=== PATIENT | male | born 1930 | race Caucasian/White ===

== ENCOUNTER 2016-09-26 04:12 | Emergency (ER) | payer MEDICARE, BC ==
--- NOTE | 2016-09-26 05:19 | EDM.PDOC ---
ED HPI GENERAL MEDICAL PROBLEM - General Chief Complaint: Lower Extremity Injury/Pain Stated Complaint: left knee pain Time Seen by Provider: 09/26/16 04:54 Source of Information: Reports: Patient History Limitations: Reports: No Limitations - History of Present Illness INITIAL COMMENTS - FREE TEXT/NARRATIVE: Patient presents via ambulance, with left knee pain. He tells me that he gets very sharp episodes of pain in the medial left knee that last 1-2 seconds. This is unrelated to activity or WTB. He thinks it is his neuropathy. The sharp episodes were coming every 15 seconds when it started 12 hours ago and now every few minutes. He has not had a flare like this since he can remember; he takes Gabapentin 2400 mg/day for this and has been taking it as directed. 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 When asked about his blood pressure he says he usually is 120 's over 70 and doesn't take any BP meds. He had been on one in the past but it was discontinued when he started having low pressure episodes. He denies any weakness or headache. No history of stroke but his eye doctor says he may have had a TIA in the past sometime, in regard to some blurry vision he has occasionally. Left Knee Pain Score (Numeric/FACES): 10 - Related Data Allergies Allergy/AdvReac Type Severity Reaction Status Date / Time Penicillins Allergy Unknown Other Verified 09/26/16 04:37 amitriptyline Allergy Drowsiness Verified 09/26/16 04:37 lisinopril Allergy Cough Verified 09/26/16 04:37 Home Meds: Home Meds Aspirin [Ecotrin] 325 mg PO DAILY 11/17/15 [History] Gabapentin [Gabapentin] 600 mg PO 1600 11/17/15 [History] Gabapentin [Neurontin] 300 mg PO 5XDAY 11/17/15 [History] Levothyroxine Sodium [Levothyroxine Sodium] 50 mcg PO ACBREAKFAST 11/17/15 [ History] Simvastatin [Simvastatin] 20 mg PO DAILY 11/17/15 [History] Sulfamethoxazole/Trimethoprim [Sulfamethoxazole-Tmp Ss Tablet] 1 tab PO DAILY [History] Acetaminophen 1 - 2 tab PO Q6H PRN 09/26/16 [History] Docusate Sodium [Colace] 1 cap PO BID PRN 09/26/16 [History] Lutein/Minerals/Vit A,C & E [Ocuvite] 1 tab PO DAILY 09/26/16 [History] Terazosin HCl [Terazosin] 4 mg PO BEDTIME 09/26/16 [History] Vitamin B Complex 1 cap PO DAILY 09/26/16 [History] Past Medical History HEENT History: Reports: Impaired Vision, Other (See Below) Other HEENT History: partial lower denture Cardiovascular History: Reports: Bypass, High Cholesterol, Hypertension Gastrointestinal History: Reports: Chronic Constipation Genitourinary History: Reports: BPH, Prostate Disorder, UTI, Recurrent Musculoskeletal History: Reports: Arthritis Neurological History: Reports: Neuropathy, Peripheral - Past Surgical History HEENT Surgical History: Reports: Cataract Surgery Cardiovascular Surgical History: Reports: Coronary Artery Bypass GI Surgical History: Reports: Colonoscopy, Other (See Below) Other GI Surgeries/Procedures: swallow eval done in September 2016 shows aspiration risk; pt is to thicken liquids Male Surgical History: Reports: None Neurological Surgical History: Reports: None Musculoskeletal Surgical History: Reports: None Social & Family History - Tobacco Use Smoking Status *Q: Former Smoker Used Tobacco, but Quit: Yes Month Tobacco Last Used: unknown - Caffeine Use Caffeine Use: Reports: Coffee - Alcohol Use Days Per Week of Alcohol Use: 1 Number of Drinks Per Day: 3 Total Drinks Per Week: 3 - Recreational Drug Use Recreational Drug Use: No Review of Systems - Review of Systems Review Of Systems: See Below Constitutional: Denies: Fever Eyes: Reports: Blurred Vision (when in bright lights). Denies: Tunnel Vision, Vision Change Ears: Denies: Dizziness, Pain Nose: Reports: No Symptoms Mouth/Throat: Reports: No Symptoms Respiratory: Denies: Shortness of Breath, Cough Cardiovascular: Denies: Chest Pain, Syncope GI/Abdominal: Denies: Abdominal Pain, Vomiting Genitourinary: Reports: No Symptoms Musculoskeletal: Reports: Joint Pain (left knee). Denies: Neck Pain, Shoulder Pain, Arm Pain, Leg Pain, Foot Pain, Joint Swelling, Muscle Stiffness Skin: Denies: Cyanosis, Jaundice, Mottled, Pallor, Diaphoresis Neurological: Reports: Difficulty Walking (balance problems, chronic). Denies: Confusion, Dizziness, Headache, Seizure, Syncope, Trouble Speaking Psychiatric: Denies: Confusion ED EXAM, GENERAL - Physical Exam Exam: See Below Exam Limited By: No Limitations General Appearance: Alert, WD/WN, No Apparent Distress Eye Exam: Bilateral Eye: EOMI, Normal Inspection, PERRL Ears: Normal External Exam, Hearing Grossly Normal Nose: Normal Inspection, No Blood Throat/Mouth: Normal Lips, Normal Voice, No Airway Compromise Head: Atraumatic, Normocephalic Respiratory/Chest: No Respiratory Distress, Lungs Clear, Normal Breath Sounds, No Accessory Muscle Use Cardiovascular: Normal Peripheral Pulses, Regular Rate, Rhythm, No Edema, No Murmur GI/Abdominal: Normal Bowel Sounds, Soft, Non-Tender, No Organomegaly, No Distention Back Exam: No: CVA Tenderness (L), CVA Tenderness (R) Extremities: Normal Range of Motion, Non-Tender, No Pedal Edema, Normal Capillary Refill, Other (Exam of left knee reveals no evidence of deformity, effusion or tenderness; twice while I was with patient he wince in pain and indicated left medial knee but this was only a second and then gone. No jointline tenderness. MCL very mildly tender to palpation following the sharp pain. No pain to varus/valgus testing). No: Pedal Edema, Joint Swelling, Adela 's Sign, Increased Warmth, Mottled, Pallor, Redness Neurological: Alert, Oriented, CN II-XII Intact, Normal Cognition, No Motor/ Sensory Deficits Psychiatric: Normal Affect, Normal Mood Skin Exam: Warm, Dry, Intact, Normal Color, No Rash Course - Vital Signs Last Recorded V/S: Last Vital Signs Temp 96.4 F 09/26/16 04:39 Pulse 60 09/26/16 04:39 Resp 16 09/26/16 04:39 BP 195/72 H 09/26/16 04:58 Pulse Ox 95 09/26/16 04:39 - Orders/Labs/Meds Orders: Active Orders 24 hr Category Date Time Status Knee 1V or 2V Lt [CR] Stat Exams 09/26/16 04:47 Ordered Knee Standing AP Bi [CR] Stat Exams 09/26/16 05:07 Ordered - Re-Assessments/Exams Free Text/Narrative Re-Assessment/Exam: 09/26/16 06:18 Xrays show no acute bony pathology or advanced arthritis. Patient's painful episodes are becoming less frequent with measured span of 6 minutes toward end of ER visit. His blood pressure is improving significantly also. Discussed options for these episodes with pharmacist at [facility] and will try Lyrica 25 mg every 8 hours for 1-2 days. The pharmacist says this should be okay along with the Gabapentin for short term but not penitentiary. She said the peak onset for Lyrica is 1.5 hours so may be helpful. We discussed his kidney function: creatinine was 1.41 at a visit ten months ago but wasn't checked tonight. Discussed findings and treatment plan with patient and he wants to try this and will follow up with Adenike Pandya to evaluate the penitentiary safety and benefit of using Lyrica for flares like this as needed. Patient discharged in stable condition. Departure - Departure Time of Disposition: 06:09 Disposition: Home, Self-Care 01 Condition: Good Clinical Impression: Peripheral neuropathy Qualifiers: Peripheral neuropathy type: hereditary neuropathy, unspecified Qualified Code(s ): G60.9 - Hereditary and idiopathic neuropathy, unspecified - Discharge Information Forms: ED Department Discharge Additional Instructions: 1. Take the Lyrica as directed: one tablet every 8 hours if needed for nerve pain. I discussed this with a pharmacist who thinks it may be beneficial for short these term episodes of neuropathy, but that you can't take Lyrica long- term along with Gabapentin. 2. Follow up with Adenike Pandya in 2-3 days to recheck your kidney function and discuss with her this option of using Lyrica for these episodes. Keep track of how the Lyrica is working for the next day or two so that you can tell Adenike if it was beneficial for you or not. 3. Drink at least 6 cups of water daily. 4. If worsening, follow up with Adenike SINGH or return to ER. 5. You can take these instruction with you to see Adenike so she knows what we are trying out. - My Orders Last 24 Hours: My Active Orders 09/26/16 04:47 Knee 1V or 2V Lt [CR] Stat 09/26/16 05:07 Knee Standing AP Bi [CR] Stat - Assessment/Plan Last 24 Hours: My Active Orders 09/26/16 04:47 Knee 1V or 2V Lt [CR] Stat 09/26/16 05:07 Knee Standing AP Bi [CR] Stat
[2016-09-26 06:01] VITALS: BP 145/62
== END 2016-09-26 07:13 | disposition home or self-care (01) ==
LOC: KA.ED 04:12
DX: G60.9 Hereditary and idiopathic neuropathy, unspecified (principal); E78.00 Pure hypercholesterolemia, unspecified; I10 Essential (primary) hypertension; Z88.8 Allergy status to other drugs, medicaments and biological substances; Z88.0 Allergy status to penicillin; Z79.82 Long term (current) use of aspirin; Z87.440 Personal history of urinary (tract) infections; Z98.49 Cataract extraction status, unspecified eye; Z87.891 Personal history of nicotine dependence
CPT/HCPCS: 73560-LT; 73565; 99283; 99284

== ENCOUNTER 2016-10-21 12:53 | Emergency (ER) | payer MEDICARE, BC ==
[2016-10-21 13:16] VITALS: BP 197/80
--- NOTE | 2016-10-21 14:05 | EDM.PDOC ---
ED HPI GENERAL MEDICAL PROBLEM - General Stated Complaint: LEFT HIP PAIN, S/P FALL Time Seen by Provider: 10/21/16 13:01 Source of Information: Reports: Patient, EMS, Family (daughter) History Limitations: Reports: No Limitations - History of Present Illness INITIAL COMMENTS - FREE TEXT/NARRATIVE: Patient brought to ER via ambulance after falling in his bathroom and unable to stand up by himself. He scooted to a phone and called his daughter who came over but was unable to get in his assisted living apartment until he could scoot over to unlock his door. He was complaining of left hip pain and his daughter could feel a lump over the lateral hip so called the ambulance. He normally has trouble with balance so ambulates only with a walker. He says the hip isn't hurting him now. He says he hit his head against something but it doesn't hurt and they couldn't find any lump, cut or bruising. He denies LOC, neck pain, back pain, upper extremity pain. - Related Data Allergies Allergy/AdvReac Type Severity Reaction Status Date / Time Penicillins Allergy Unknown Other Verified 10/21/16 13:12 amitriptyline Allergy Drowsiness Verified 10/21/16 13:12 lisinopril Allergy Cough Verified 10/21/16 13:12 Home Meds: Home Meds Gabapentin [Gabapentin] 600 mg PO 1600 11/17/15 [History] Gabapentin [Neurontin] 300 mg PO 5XDAY 11/17/15 [History] Levothyroxine Sodium [Levothyroxine Sodium] 50 mcg PO ACBREAKFAST 11/17/15 [ History] Simvastatin [Simvastatin] 20 mg PO DAILY 11/17/15 [History] Sulfamethoxazole/Trimethoprim [Sulfamethoxazole-Tmp Ss Tablet] 1 tab PO DAILY [History] Acetaminophen 1 - 2 tab PO Q6H PRN 09/26/16 [History] Docusate Sodium [Colace] 1 cap PO BID PRN 09/26/16 [History] Lutein/Minerals/Vit A,C & E [Ocuvite] 1 tab PO DAILY 09/26/16 [History] Terazosin HCl [Terazosin] 4 mg PO BEDTIME 09/26/16 [History] Vitamin B Complex 1 cap PO DAILY 09/26/16 [History] Aspirin [Halfprin] 81 mg PO DAILY 10/21/16 [History] Past Medical History HEENT History: Reports: Impaired Vision, Other (See Below) Other HEENT History: partial lower denture Cardiovascular History: Reports: Bypass, High Cholesterol, Hypertension Gastrointestinal History: Reports: Chronic Constipation Genitourinary History: Reports: BPH, Prostate Disorder, UTI, Recurrent Musculoskeletal History: Reports: Arthritis Neurological History: Reports: Neuropathy, Peripheral - Past Surgical History HEENT Surgical History: Reports: Cataract Surgery Cardiovascular Surgical History: Reports: Coronary Artery Bypass GI Surgical History: Reports: Colonoscopy, Other (See Below) Other GI Surgeries/Procedures: swallow eval done in September 2016 shows aspiration risk; pt is to thicken liquids Male Surgical History: Reports: None Neurological Surgical History: Reports: None Musculoskeletal Surgical History: Reports: None Social & Family History - Tobacco Use Smoking Status *Q: Former Smoker Used Tobacco, but Quit: Yes Month Tobacco Last Used: unknown - Caffeine Use Caffeine Use: Reports: Coffee - Alcohol Use Days Per Week of Alcohol Use: 1 Number of Drinks Per Day: 3 Total Drinks Per Week: 3 - Recreational Drug Use Recreational Drug Use: No Review of Systems - Review of Systems Review Of Systems: See Below Eyes: Denies: Vision Change Ears: Denies: Dizziness Nose: Denies: Epistaxis Mouth/Throat: Denies: Hoarse Voice, Difficulty Swallowing Respiratory: Denies: Shortness of Breath, Cough Cardiovascular: Denies: Chest Pain, Syncope GI/Abdominal: Denies: Abdominal Pain, Nausea, Vomiting Genitourinary: Denies: Dysuria Musculoskeletal: Denies: Neck Pain, Shoulder Pain, Arm Pain, Back Pain, Hand Pain, Foot Pain Skin: Denies: Cyanosis, Jaundice, Mottled, Pallor, Diaphoresis Neurological: Denies: Confusion, Dizziness, Headache, Trouble Speaking, Gait Disturbance Psychiatric: Denies: Confusion ED EXAM, GENERAL - Physical Exam Exam: See Below Exam Limited By: No Limitations General Appearance: Alert, WD/WN, No Apparent Distress Eye Exam: Bilateral Eye: EOMI, Normal Inspection, PERRL Ears: Normal External Exam, Hearing Grossly Normal Nose: Normal Inspection, No Blood Throat/Mouth: Normal Inspection, Normal Lips, Normal Voice, No Airway Compromise Head: Atraumatic, Normocephalic Neck: Normal Inspection, Supple, Non-Tender, Full Range of Motion Respiratory/Chest: No Respiratory Distress, Lungs Clear, Normal Breath Sounds, No Accessory Muscle Use Cardiovascular: Normal Peripheral Pulses, Regular Rate, Rhythm, No Murmur Peripheral Pulses: 2+: Carotid (L), Carotid (R), Radial (L), Radial (R) GI/Abdominal: Normal Bowel Sounds, Soft, Non-Tender, No Organomegaly, Pelvis Stable Back Exam: No: CVA Tenderness (L), CVA Tenderness (R) Extremities: Normal Range of Motion, Non-Tender, No Pedal Edema, Joint Swelling (mild swelling over the left greater trochanter vs deformity; nontender.) Neurological: Alert, Oriented, CN II-XII Intact, Normal Cognition, No Motor/ Sensory Deficits Psychiatric: Normal Affect, Normal Mood Skin Exam: Warm, Dry, Intact, Normal Color, No Rash Course - Vital Signs Last Recorded V/S: Last Vital Signs Temp 98.6 F 10/21/16 13:13 Pulse 55 L 10/21/16 13:13 Resp 18 10/21/16 13:13 BP 197/80 H 10/21/16 13:13 Pulse Ox 92 L 10/21/16 13:13 - Orders/Labs/Meds Orders: Active Orders 24 hr Category Date Time Status Hip Min 2V or 3V w Pelvis Lt [CR] Stat Exams 10/21/16 13:09 Ordered - Re-Assessments/Exams Free Text/Narrative Re-Assessment/Exam: 10/21/16 14:26 Xrays reveal no fracture or dislocation, confirmed by radiologist. Helped patient to his feet and he could take steps with his walker without pain. Discussed findings and recommendations with patient and his family. Patient discharged in stable condition. Departure - Departure Time of Disposition: 13:52 Disposition: Home, Self-Care 01 Condition: Good Clinical Impression: Acute pain of left hip - Discharge Information Additional Instructions: 1. Continue to use walker for ambulation. 2. Follow up with your PCP if this worsens or fails to improve in a few days. You may see some bruising over the left hip which is okay as long as your aren' t feeling more pain. 3. Return to ER as needed. - My Orders Last 24 Hours: My Active Orders 10/21/16 13:09 Hip Min 2V or 3V w Pelvis Lt [CR] Stat - Assessment/Plan Last 24 Hours: My Active Orders 10/21/16 13:09 Hip Min 2V or 3V w Pelvis Lt [CR] Stat
== END 2016-10-21 14:00 | disposition home or self-care (01) ==
LOC: KA.ED 12:53
DX: M25.552 Pain in left hip (principal); H54.7 Unspecified visual loss; E78.00 Pure hypercholesterolemia, unspecified; I10 Essential (primary) hypertension; Z95.1 Presence of aortocoronary bypass graft; Z87.440 Personal history of urinary (tract) infections; Z87.891 Personal history of nicotine dependence; Z98.49 Cataract extraction status, unspecified eye; Z88.0 Allergy status to penicillin; Z88.8 Allergy status to other drugs, medicaments and biological substances; Z79.899 Other long term (current) drug therapy; Z79.82 Long term (current) use of aspirin
CPT/HCPCS: 99283

== ENCOUNTER 2017-10-10 02:05 | Emergency (ER) | payer MEDICARE, BC ==
--- NOTE | 2017-10-10 02:37 | EDM.PDOC ---
ED HPI GENERAL MEDICAL PROBLEM - General Chief Complaint: Chest Pain Stated Complaint: chest pain Time Seen by Provider: 10/10/17 02:21 Source of Information: Reports: Patient, EMS, EMS Notes Reviewed History Limitations: Reports: No Limitations - History of Present Illness INITIAL COMMENTS - FREE TEXT/NARRATIVE: Patient is an 87-year-old gentleman who presents to the emergency Department this evening via EMS with a complaint of chest discomfort. Patient resides at [facility]. Patient states that symptoms began about 10 a.m. yesterday morning, and he decided at 1 a.m. today to contact the staff at shelter that is affiliated with the [facility]. The staff checked on him and decided to call 911. Patient has vague complaint of left lower rib pain, is intermittent, and thinks it may be his neuropathy. Patient denies shortness of breath, fever, fall or any trauma, abdominal pain, nausea, vomiting, diarrhea, or coughing. Onset: Gradual Duration: Intermittent Location: Reports: Chest Quality: Reports: Ache Severity: Mild Improves with: Reports: None Worsens with: Reports: None Associated Symptoms: Reports: No Other Symptoms - Related Data Allergies Allergy/AdvReac Type Severity Reaction Status Date / Time Penicillins Allergy Unknown Other Verified 10/10/17 02:23 amitriptyline Allergy Drowsiness Verified 10/10/17 02:23 lisinopril Allergy Cough Verified 10/10/17 02:23 Home Meds: Home Meds Gabapentin 600 mg PO BID 11/17/15 [History] Gabapentin [Neurontin] 300 mg PO QID 11/17/15 [History] Levothyroxine Sodium 50 mcg PO ACBREAKFAST 11/17/15 [History] Simvastatin 20 mg PO DAILY 11/17/15 [History] Sulfamethoxazole/Trimethoprim [Sulfamethoxazole-Tmp Ss Tablet] 1 tab PO DAILY [History] Acetaminophen 1 - 2 tab PO Q4H PRN 09/26/16 [History] Docusate Sodium [Colace] 1 cap PO BID PRN 09/26/16 [History] Lutein/Minerals/Vit A,C & E [Ocuvite] 1 tab PO DAILY 09/26/16 [History] Terazosin HCl [Terazosin] 8 mg PO BEDTIME 09/26/16 [History] Vitamin B Complex 1 cap PO DAILY 09/26/16 [History] Aspirin [Halfprin] 81 mg PO DAILY 10/21/16 [History] Past Medical History HEENT History: Reports: Impaired Vision, Other (See Below) Other HEENT History: partial lower denture Cardiovascular History: Reports: Bypass, High Cholesterol, Hypertension Gastrointestinal History: Reports: Chronic Constipation Genitourinary History: Reports: BPH, Prostate Disorder, UTI, Recurrent Musculoskeletal History: Reports: Arthritis Neurological History: Reports: Neuropathy, Peripheral - Past Surgical History HEENT Surgical History: Reports: Cataract Surgery Cardiovascular Surgical History: Reports: Coronary Artery Bypass GI Surgical History: Reports: Colonoscopy, Other (See Below) Other GI Surgeries/Procedures: swallow eval done in September 2016 shows aspiration risk; pt is to thicken liquids Male Surgical History: Reports: None Neurological Surgical History: Reports: None Musculoskeletal Surgical History: Reports: None Social & Family History - Caffeine Use Caffeine Use: Reports: Coffee ED ROS GENERAL - Review of Systems Review Of Systems: ROS reveals no pertinent complaints other than HPI. Constitutional: Reports: No Symptoms HEENT: Reports: No Symptoms Respiratory: Reports: No Symptoms Cardiovascular: Reports: Chest Pain Endocrine: Reports: No Symptoms GI/Abdominal: Reports: No Symptoms : Reports: No Symptoms Musculoskeletal: Reports: No Symptoms Skin: Reports: No Symptoms Neurological: Reports: No Symptoms Psychiatric: Reports: No Symptoms Hematologic/Lymphatic: Reports: No Symptoms Immunologic: Reports: No Symptoms ED EXAM, GENERAL - Physical Exam Exam: See Below Exam Limited By: No Limitations General Appearance: Alert, WD/WN, No Apparent Distress Eye Exam: Bilateral Eye: Normal Inspection Nose: Normal Inspection, Normal Mucosa, No Blood Throat/Mouth: Normal Inspection, Normal Oropharynx, No Airway Compromise Head: Atraumatic, Normocephalic Neck: Normal Inspection, Supple, Non-Tender Respiratory/Chest: No Respiratory Distress, Lungs Clear, Normal Breath Sounds, No Accessory Muscle Use, Chest Non-Tender Cardiovascular: Normal Peripheral Pulses, Regular Rate, Rhythm, Systolic Murmur GI/Abdominal: Normal Bowel Sounds, Soft, Non-Tender, No Organomegaly, No Distention, No Abnormal Bruit, No Mass Back Exam: Normal Inspection. No: CVA Tenderness (L), CVA Tenderness (R) Extremities: Normal Inspection, No Pedal Edema Neurological: Alert, Oriented, Normal Cognition Psychiatric: Normal Affect, Normal Mood Skin Exam: Warm, Dry, Intact, Normal Color, No Rash Lymphatic: No Adenopathy EKG INTERPRETATION EKG Date: 10/10/17 Time: 02:00 Rhythm: Other (Sinus bradycardia) Rate (Beats/Min): 59 [place]: RAD-Right [place] Deviation P-Wave: Present QRS: Normal ST-T: Normal QT: Normal Comparison: NA - No Prior EKG Course - Vital Signs Last Recorded V/S: Last Vital Signs Temp 96.4 F 10/10/17 02:05 Pulse 60 10/10/17 02:05 Resp 16 10/10/17 02:05 BP 168/61 H 10/10/17 02:05 Pulse Ox 94 L 10/10/17 02:05 - Orders/Labs/Meds Orders: Active Orders 24 hr Category Date Time Status CXR [Chest 2V] [CR] Stat Exams 10/10/17 02:13 Ordered CBC WITH AUTO DIFF [HEME] Stat Lab 10/10/17 02:15 Received CMP [COMPREHENSIVE METABOLIC PN,CMP] [CHEM] Stat Lab 10/10/17 02:15 Received TROPONIN I [CHEM] Stat Lab 10/10/17 02:15 Received - Radiology Interpretation Free Text/Narrative:: Chest x-ray negative for acute cardiopulmonary process - Re-Assessments/Exams Free Text/Narrative Re-Assessment/Exam: 10/10/17 02:57 Patient afebrile, nontoxic appearing, vital signs stable. Unable to reproduce discomfort with palpation and patient has had no chest discomfort while in the emergency department. Departure - Departure Time of Disposition: 02:58 Disposition: Home, Self-Care 01 Condition: Good Clinical Impression: Atypical chest pain Instructions: Nonspecific Chest Pain, [id number] Additional Instructions: Follow-up with your primary care provider in 2 days. Return to emergency sooner if symptoms continue or worsen. - My Orders Last 24 Hours: My Active Orders 10/10/17 02:13 CXR [Chest 2V] [CR] Stat 10/10/17 02:15 CBC WITH AUTO DIFF [HEME] Stat CMP [COMPREHENSIVE METABOLIC PN,CMP] [CHEM] Stat TROPONIN I [CHEM] Stat - Assessment/Plan Last 24 Hours: My Active Orders 10/10/17 02:13 CXR [Chest 2V] [CR] Stat 10/10/17 02:15 CBC WITH AUTO DIFF [HEME] Stat CMP [COMPREHENSIVE METABOLIC PN,CMP] [CHEM] Stat TROPONIN I [CHEM] Stat Assessment:: Nonspecific chest pain Plan: Follow-up with PCP in 2 days
[2017-10-10 02:49] LABS: ANION GAP 11.6 mmol/L (5-15); CHLORIDE,CL 98 mmol/L (98-115); SODIUM,NA 136 mmol/L (136-145)
[2017-10-10 03:52] VITALS: BP 168/53
== END 2017-10-10 06:30 | disposition home or self-care (01) ==
LOC: KA.ED 02:05
DX: R07.89 Other chest pain (principal); I10 Essential (primary) hypertension; E78.00 Pure hypercholesterolemia, unspecified; Z79.82 Long term (current) use of aspirin; Z79.899 Other long term (current) drug therapy; Z88.0 Allergy status to penicillin; Z88.8 Allergy status to other drugs, medicaments and biological substances
CPT/HCPCS: 36415; 71045; 80053; 84484; 85025; 99285